=== PATIENT | female | born 1945 ===

== ENCOUNTER 2017-11-10 07:35 | Day surgery (SDC) | payer MEDICARE ==
--- NOTE | 2017-11-10 10:15 | CP.SDSHP ---
Same Day Surgery H & P - History Proposed Procedure: EGD Pre-Op Diagnosis: SEE NOTES - Previous Medical/Surgical History Cardiac: Hypertension Endocrine/Metabolic: Other Neuro: Other Misc: Other Pain: 4.Moderate Pain - Allergies Allergies: Allergies No Known Allergies Allergy (Unverified 07/11/13 09:17) - Physical Exam General Appearance: N Vital Signs: Vital Signs 11/10/17 08:45 Temperature 98.6 F Pulse Rate 74 Respiratory 19 Rate Blood Pressure 126/71 O2 Sat by Pulse 97 Oximetry Mental Status: Alert & Oriented x3 Neuro: Other Heart: Other Lungs: WNL GI: Other - {Optional Preform as Required} Breast: WNL Abdomen: Other Rectal: Other Integument: WNL : WNL Ortho: WNL ENT: WNL - Impression Pt. Evaluated Today:Candidate for Anesthesia & Procedure: Yes - Date & Time Time: 10:16 Short Stay Discharge - Short Stay Discharge Admitting Diagnosis/Reason for Visit: DYSPEPSIA / DYSPHAGIA Disposition: HOME/ ROUTINE
[2017-11-10] MEDS ORDERED: Lidocaine Hydrochloride 5 ML INJ ONE (10:18)
[2017-11-10] MEDS ORDERED: Etomidate 20 mg/10ml Inj IV ONE (10:18)
[2017-11-10] MEDS ORDERED: Propofol 10 mg/ml Inj (20 ML) ONE (10:18)
[2017-11-10] MEDS ORDERED: Lactated Ringer's 500 ML IV ONE ×2 (10:20)
[2017-11-10] MEDS ORDERED: Sucralfate 1 gm/10 ml Oral Susp UD PO ONE (10:40)
[2017-11-10 10:52] VITALS: TEMP 98.4
[2017-11-10 11:24] VITALS: BP 126/84; PULSE 77; RESP 15; O2SAT 100
== END 2017-11-10 11:23 | disposition home or self-care (01) ==
LOC: C.ENDO 07:35
PROVIDERS: ATTEND Specialist
DX: K25.9 Gastric ulcer, unspecified as acute or chronic, without hemorrhage or perforation (principal); K30 Functional dyspepsia; R13.10 Dysphagia, unspecified; K44.9 Diaphragmatic hernia without obstruction or gangrene; I10 Essential (primary) hypertension
CPT/HCPCS: 43239; 88305; J2704; J7120